=== PATIENT | male | born 1980 | race Caucasian/White ===

== ENCOUNTER 2018-08-20 08:36 | Emergency (ER) | payer BC ==
[~2018-08-20] VITALS: Ht 188 cm; Wt 99.8 kg
--- NOTE | 2018-08-20 09:53 | REP ---
Chest two views HISTORY: Cough Comparison: None The lungs are clear. The heart is normal in size. The pulmonary vasculature is normal in appearance. The bony structure is intact. IMPRESSION: No acute disease. Electronically Signed by Sean Cornejo MD 08/20/2018 09:44 A
[2018-08-20] MEDS ORDERED: AZIT-12 PO (10:23)
[2018-08-20] MEDS ORDERED: VENTAER INH (10:24)
[2018-08-20] MEDS ORDERED: ACETAMINOPHEN TAB 650MG DOSE (2X325MG) PO ONE (10:45)
[2018-08-20 10:47] VITALS: BP 137/82
== END 2018-08-20 10:48 | disposition home or self-care (01) ==
LOC: M ED 08:36
DX: J20.9 Acute bronchitis, unspecified (principal)

== ENCOUNTER 2019-11-09 03:46 | Emergency (ER) | payer BC ==
[~2019-11-09 03:46] MED LIST: AZIT-12 PO; VENTAER INH
--- NOTE | 2019-12-17 16:41 | ECGEPIP ---
SINUS RHYTHM NORMAL ECG SEE SCANNED DOWNTIME REPORT MTDD
[2020-01-25 03:31] LABS: CHOLESTEROL RISK RATIO 4.27 (<5)
== END 2019-11-09 06:30 | disposition home or self-care (01) ==
LOC: M ED 03:46
DX: K29.70 Gastritis, unspecified, without bleeding (principal)

== ENCOUNTER → 2019-11-20 | Outpatient (CLI) | payer SELFPAY | LOC: M LABSMTC 13:00 | PROVIDERS: ATTEND Pediatrics | DX: Z11.59 Encounter for screening for other viral diseases (principal); Z20.828 Contact with and (suspected) exposure to other viral communicable diseases ==

== ENCOUNTER → 2020-04-01 | Outpatient (CLI) | payer BC | LOC: M LABSMTC 12:24 | PROVIDERS: ATTEND Anesthesiology Pain Medicine | DX: Z20.828 Contact with and (suspected) exposure to other viral communicable diseases (principal) ==

== ENCOUNTER → 2020-04-16 | Outpatient (CLI) | payer BC ==
--- NOTE | 2020-04-19 23:38 | ECWPNPC ---
PATIENT NAME: ALBARO DO : 1980 GENDER: MALE VISIT DATE: 04/16/2020 DISCHARGE DATE: 04/16/20 1349 VISIT LOCKED DATE TIME: PHYSICIAN: HARPAL MUNIZ RESOURCE: HARPAL MUNIZ REASON FOR APPOINTMENT 1. THORACIC/LUMBAR SPINE HISTORY OF PRESENT ILLNESS DEPRESSION SCREENING: PHQ-2 (2015 EDITION) LITTLE INTEREST OR PLEASURE IN DOING THINGS?NOT AT ALL FEELING DOWN, DEPRESSED, OR HOPELESS?NOT AT ALL TOTAL SCORE0 39-YEAR-OLD MALE IN FOR INITIAL PAIN CONSULT REGARDING THORACIC AND LOW BACK PAIN. HE RATES HIS PAIN CURRENTLY AT A 2 OUT OF 10 AND DESCRIBES IT BURNING, STABBING, AND SHOOTING. PATIENT ADMITS TO RECENT EPIDURAL STEROID INJECTIONS THAT HELPED TO REDUCE HIS PAIN. HE DENIES MEDICATIONS AND STATES HE WOULD PREFER TO USE PROCEDURES TO HELP MANAGE HIS SYMPTOMS. GENERAL: - - -. FALL RISK SCREENING: SCREENING :NO FALLS REPORTED IN THE LAST YEAR PAIN SCREENING: PATIENT HAS A COMPLAINT OF ACUTE OR CHRONIC PAIN :YES LOCATION OF PAIN:LOW BACK, LEFT HIP, LEG(S), THIGH(S) LEFT INTENSITY OF PAIN (SCALE OF 1 TO 10):2 WHAT DOES YOUR PAIN FEEL LIKE:BURNING, STABBING, SHOOTING DURATION:INTERMITTENT PAIN IS INCREASED BY:ACTIVITIES, OTHERS CONTINUOUS LIFTING, BENDING, TWISTING PAIN IS DECREASED BY:OTHERS PAIN INJECTIONS, HEAT NURSING NOTE: - - -. PAIN CENTER INTAKE QUESTIONS: DO YOU HAVE A HISTORY OF MRSA? :NO DO YOU TAKE A BLOOD THINNERS? :NO DO YOU HAVE ANY BLEEDING DISORDERS? :NO ANY NEW NUMBNESS OR WEAKNESS IN YOUR LEGS OR ARMS? :NO ANY PACEMAKER,DEFIBRILLATOR, OR DORSAL COLUMN STIMULATOR? :NO DO YOU HAVE ANY RASHES OR OPEN SORES? :NO ARE YOU ALLERGIC TO IV DYE? :NO ARE YOU DIABETIC? :NO ANY NEW PROBLEMS WITH YOUR MEDICATIONS? :NO HAVE YOU RECEIVED A VACCINE IN THE PAST 30 DAYS? :YES IF SO WHAT VACCINE AND WHEN? COVID VACCINE 04/08/2020 DO YOU PLAN TO RECEIVE A VACCINE IN THE NEXT 21 DAYS? :YES IF SO WHAT VACCINE AND WHEN? 2ND COVID VACCINE 05/06/20 DO YOU NEED ANY PRESCRIPTION? :NO DO YOU TAKE ANY IMMUNOSUPPRESSIVE MEDICATIONS? :NO CURRENT MEDICATIONS TAKING MULTI COMPLETE - CAPSULE DIRECTED ORALLY DAILY MEDICATION LIST REVIEWED AND RECONCILED WITH THE PATIENT PAST MEDICAL HISTORY CHRONIC BACK PAIN ALLERGIES N.K.D.A. SURGICAL HISTORY RIGHT ANKLE 2007 APPENDECTOMY 2014 NASAL SEPTOPLASTY 2017 FAMILY HISTORY FATHER: ALIVE MOTHER: ALIVE, DIAGNOSED WITH HYPERTENSION 1 BROTHER(S) , 4 SISTER(S) . 1 SON(S) . FAMILY OF HYPERTENSIONSISTER - DISSECTED ARTERYSON - APPENDECTOMY. SOCIAL HISTORY GENERAL: TOBACCO USE ARE YOU A:CURRENT SOME DAY SMOKER OCCASSIONAL - 1/WEEK LATEX QUESTIONNAIRE LATEX ALLERGY : HAVE YOU EVER DEVELOPED ANY TYPE OF REACTION AFTER HANDLING LATEX PRODUCTS SUCH RUBBER GLOVES, CONDOMS, DIAPHRAGMS, BALLOONS, SOCKS, OR UNDERWEAR?NO LATEX ALLERGY : HAVE YOU EVER DEVELOPED ANY TYPE OF REACTION DURING OR AFTER DENTAL APPOINTMENT, VAGINAL/RECTAL EXAMINATION, SURGICAL PROCEDURE, OR ANY OTHER EXPOSURE?NO LATEX RISK : HAVE YOU EVER HAD ANY DIFFICULTY BREATHING OR HIVES AFTER EATING OR HANDLING ANY FRUITS, OR VEGETABLES; SUCH KIWI, BANANAS, STONE FRUITS, OR CHESTNUTSNO LATEX RISK : DO YOU HAVE A PREVIOUS PERSONAL HISTORY OF MORE THAN NINE SURGERIES, SPINA BIFIDA, OR REPEATED CATHERIZATIONS? NO LATEX RISK : ARE YOU FREQUENTLY EXPOSED TO LATEX PRODUCTS IN YOUR OCCUPATION?NO DATE ASKED : 04/15/2020 ALCOHOL SCREENING DID YOU HAVE A DRINK CONTAINING ALCOHOL IN THE PAST YEAR?YES HOW OFTEN DID YOU HAVE A DRINK CONTAINING ALCOHOL IN THE PAST YEAR?TWO TO FOUR TIMES A MONTH (2 POINTS) HOW MANY DRINKS DID YOU HAVE ON A TYPICAL DAY WHEN YOU WERE DRINKING IN THE PAST YEAR?5 OR 6 (2 POINTS) HOW OFTEN DID YOU HAVE SIX OR MORE DRINKS ON ONE OCCASION IN THE PAST YEAR?LESS THAN MONTHLY (1 POINT) POINTS5 INTERPRETATIONPOSITIVE RECREATIONAL DRUG USE DRUG USE?NO LEARNING BARRIERS / SPECIAL NEEDS BARRIERS TO LEARNING?NO HEARING IMPAIRED?NO VISION IMPAIRED?NO COGNITIVELY IMPAIRED?NO READINESS TO LEARN?YES LEARNING PREFERENCES?YES :BOOKLETS, HANDOUTS LEARNING CAPABILITIES PRESENT?YES EMOTIONAL BARRIERS?NO SPECIAL DEVICES?NO SAVE ALL OPERATOR NEEDED?NO HOSPITALIZATION/MAJOR DIAGNOSTIC PROCEDURE SURGERY REVIEW OF SYSTEMS CONSTITUTIONAL: ANY RECENT FEVER NO . CHILLS NO . WEIGHT CHANGE OF UNKNOWN REASONS NO . MUSCULOSKELETAL: ANY UNUSUAL JOINT PAIN OR SWELLING NOT MENTIONED NO . SYSTEMIC LUPUS NO . ANY NEUROMUSCULAR DISORDER NOT MENTIONED NO . LYME DISEASE NO . GASTROENTEROLOGY: ANY NEW CHANGE IN BOWEL CONTROL? NO . HISTORY OF LIVER DISORDER NOT MENTIONED NO . HISTORY OF UNUSUAL ABDOMINAL PAIN OR CRAMPING NOT MENTIONED NO . NO CONSTIPATION. GENITOURINARY: ANY NEW CHANGE IN BLADDER CONTROL? NO . ANY RENAL/KIDNEY CONDITON NOT MENTIONED NO . NEUROLOGY: HISTORY OF TBI NOT MENTIONED NO . OTHER NEW NUMBNESS OR PAIN PATTERNS NOT MENTIONED NO . NEW ONSET DIZZINESS OR NEUROLOGICAL CHANGES NOT MENTIONED NO . HISTORY OF SEVERE HEADACHES NOT MENTIONED NO . HISTORY OF STROKE OR NEUROLOGICAL DISORDER NOT MENTIONED NO . CARDIOLOGY: HEART SURGERY NO . CONGESTIVE HEART FAILURE/FLUID OVERLOAD NOT MENTIONED NO . HISTORY OF CHEST PAIN,IRREGULAR HEART BEAT NOT MENTIONED NO . RESPIRATORY: SHORTNESS OF BREATH ON EXERTION, WHEEZES, UNUSUAL COUGH NOT MENTIONED NO . ENDOCRINOLOGY: ADRENAL GLAND OR THYROID DISORDERS NOT MENTIONED NO . UNUSUAL URINATION, DIZZINESS OR LETHARGY NOT MENTIONED NO . VITAL SIGNS WT 230 LBS, HT 6'2, BMI 31.19 INDEX, BP 151/82 MM HG, HR 18 /MIN, TEMP 98 F, OXYGEN SAT % 99%, SAFE IN ENV? (Y/N) YEST.SHEILA [place]LE NOTIFY PROVIDER ABOUT PATIENT VITALS SIGNS " HAD ENERGY DRINK ". EXAMINATION GENERAL EXAMINATION: GENERALNO ACUTE DISTRESS, WELL NOURISHED AND HYDRATED. PSYCHAPPROPRIATE MOOD AND AFFECT . LUNGS:CLEAR TO AUSCULTATION BILATERALLY, NO WHEEZES, RHONCHI, RALES. HEART:NO MURMURS, REGULAR RATE AND RHYTHM. BACK:DENIES POINT TENDERNESS ALONG LUMBAR AND THORACIC SPINE, SURROUNDING SKIN SHOWS NO ERYTHEMA, ECCHYMOSIS, INCREASED WARMTH, AND/OR SKIN ERUPTIONS NOTED. . MUSCULOSKELETAL:EQUAL STRENGTH OF THE LOWER EXTREMITIES BILATERALLY . ASSESSMENTS INTERVERTEBRAL DISC DISORDERS WITH RADICULOPATHY, LUMBOSACRAL REGION - M51.17 (PRIMARY) TREATMENT OTHERS NOTES: 39-YEAR-OLD MALE IN FOR INITIAL PAIN CONSULT. GIVEN PRESENTING SYMPTOMS AND RESULTS OF PHYSICAL EXAMINATION RECOMMENDED PATIENT COME BACK ON AN -NEEDED BASIS. PATIENT HAS EXPRESSED UNDERSTANDING OF AND WAS IN AGREEMENT WITH TREATMENT PLAN. GIVEN TIME TO ASK QUESTIONS AND EXPRESS CONCERNS. PROCEDURE CODES FA211 ESTABILISHED PATIENT [facility] CHARGE DISPOSITION & COMMUNICATION FOLLOW UP NEEDED (REASON: THORACIC AND LUMBAR BACK PAIN) ELECTRONICALLY SIGNED BY TANIA COLES ON 04/19/2020 AT 10:35 AM EST DISCLAIMER : THIS IS A VISIT SUMMARY EXTRACTED FROM THE [employer] CHART. IT IS NOT A COPY OF THE [employer] PROGRESS NOTE. MELQUIADES
== END ==
LOC: M PAIN 13:00
PROVIDERS: ATTEND Family Medicine
DX: M51.17 Intervertebral disc disorders with radiculopathy, lumbosacral region (principal); F17.210 Nicotine dependence, cigarettes, uncomplicated; Z79.899 Other long term (current) drug therapy

== ENCOUNTER → 2020-06-02 | Outpatient (CLI) | payer BC ==
--- NOTE | 2020-06-02 17:40 | REP ---
INDICATION: LUMBAR HERNIATED DISC. COMPARISON: None. TECHNIQUE: Multiple sequences obtained in the axial, coronal and sagittal planes. FINDINGS: The osseous structures of the pelvis demonstrate normal bone marrow signal. There is no bone marrow edema or occult fracture. There is no evidence of avascular necrosis of the femoral heads. No bone lesion is seen. There is a lobulated cyst with thin internal septations in the left pectineus muscle. This measures approximately 2.6 x 1.0 x 3.5 cm. Otherwise the pelvic musculature appears unremarkable with no abnormal signal. No definite arthritic changes seen at either hip joint. There is normal amount of joint fluid. No adenopathy is seen in the pelvis. There are small bilateral inguinal hernias containing noninflamed fat. IMPRESSION: Probable ganglion cyst in the left pectineus muscle. Small bilateral hernias containing fat. No osseous abnormality seen. <Electronically signed by Jose Veras > 06/02/20 0445
--- NOTE | 2020-06-02 18:00 | REPVR ---
PROCEDURE INFORMATION: Exam: MR Lumbar Spine Without Contrast Exam date and time: 06/02/2020 5:34 PM Age: 39 years old Clinical indication: Low back pain; Additional info: Lumbar herniated disc TECHNIQUE: Imaging protocol: Multiplanar magnetic resonance images of the lumbar spine without intravenous contrast. COMPARISON: No relevant prior studies available. FINDINGS: Vertebrae: Mild increased concavity of the superior T12 and L1 endplates, with a focal Schmorl's node of the superior L1 endplate. There is no acute marrow edema, consistent with chronic changes. Modic endplate changes are identified adjacent to these superior endplates. There is a small concavity/Schmorl's node involving the inferior L5 endplate. The remaining lumbar vertebral bodies are normal in height. Mild retrolisthesis of L5 on S1. Spinal cord: The distal end of the conus medullaris ends at L1, normal in position. L1-L2: Bilateral facet arthropathy. No significant spinal canal stenosis or neural foraminal narrowing. L2-L3: Bilateral facet arthropathy with hypertrophy of the ligamentum flavum. There is no significant narrowing of the thecal sac or neural foramina. L3-L4: Bilateral facet arthropathy with hypertrophy of the ligamentum flavum. No significant spinal canal stenosis. There is slight narrowing of the inferior aspects of the left neural foramen. Minimal bulging into the right neural foramen, without significant narrowing. L4-L5: Bilateral facet arthropathy with hypertrophy of the ligamentum flavum. A broad-based disc bulge is identified, with mild narrowing of the thecal sac. There is narrowing of both lateral recesses. Mild bilateral neural foraminal narrowing. L5-S1: Bilateral facet arthropathy with hypertrophy of the ligamentum flavum. A central protrusion is identified causing effacement of the anterior epidural fat, without significant narrowing of the thecal sac. No significant neural foraminal narrowing bilaterally. Soft tissues: No significant paraspinal swelling. Lymph nodes: Scattered nonspecific small retroperitoneal lymph nodes are visualized. IMPRESSION: 1. Mild retrolisthesis of L5 on S1. 2. Degenerative changes are identified at multiple lumbar levels, as described above. 3. Mild narrowing of the thecal sac at L4-L5. 4. At L5-S1, a central protrusion is identified causing effacement of the anterior epidural fat. 5. Neural foraminal narrowing visualized at L3-L4 and L4-L5. 6. Additional findings described above. Electronically signed by: Adair Rothman On 06/02/2020 18:01:12 PM
== END ==
LOC: M RAD 16:25
PROVIDERS: ATTEND Physical Medicine & Rehabilitation
DX: M51.26 Other intervertebral disc displacement, lumbar region (principal); K40.20 Bilateral inguinal hernia, without obstruction or gangrene, not specified as recurrent

== ENCOUNTER → 2022-07-31 | Outpatient (CLI) | payer BC | LOC: M SOG 07:59 | PROVIDERS: ATTEND Orthopaedic Surgery | DX: M54.50 Low back pain, unspecified (principal) ==

== ENCOUNTER → 2022-10-09 | Outpatient (CLI) | payer BC | LOC: M RAD 14:37 | PROVIDERS: ATTEND Orthopaedic Surgery | DX: M25.552 Pain in left hip (principal); M54.59 Other low back pain ==

== ENCOUNTER → 2022-11-13 | Outpatient (CLI) | payer BC ==
[~2022-11-13] MED LIST changes: +PROHANCE 279.3MG/ML 15ML VIAL ONE; +PROHANCE 279.3MG/ML 5ML VIAL ONE
== END ==
LOC: M PLAIMG 13:25
PROVIDERS: ATTEND Orthopaedic Surgery
DX: M47.816 Spondylosis without myelopathy or radiculopathy, lumbar region (principal); R93.41 Abnormal radiologic findings on diagnostic imaging of renal pelvis, ureter, or bladder
CPT/HCPCS: 72197; A9576

== ENCOUNTER → 2023-03-16 | Outpatient (CLI) | payer BC ==
[~2023-03-16] MED LIST changes: -PROHANCE 279.3MG/ML 15ML VIAL ONE; -PROHANCE 279.3MG/ML 5ML VIAL ONE
[2023-03-16 17:58] LABS: BASO % 0.8 % (0.0-1.0); EOS # 0.1 10^3/uL (0.0-0.5); EOS % 1.5 % (0.0-3.0); HEMATOCRIT 45.9 % (42.0-52.0); LYMPH # 1.6 10^3/uL (1.5-5.0); LYMPH % 31.3 % (24.0-44.0); MEAN CORPUSCULAR HEMOGLOBIN 30.7 pg (27.0-33.0); MEAN CORPUSCULAR HGB CONC 32.7 g/dl (32.0-36.5); MEAN CORPUSCULAR VOLUME 93.9 fl (80.0-96.0); MONO # 0.5 10^3/uL (0.0-0.8); MONO % 9.7 % (2.0-8.0); NEUTROPHILS # 2.9 10^3/uL (1.5-8.5); NEUTROPHILS % 56.1 % (36.0-66.0); PLATELET COUNT, AUTOMATED 131 10^3/uL (150-450); RED BLOOD COUNT 4.89 10^6/uL (4.30-6.10); WHITE BLOOD COUNT 5.2 10^3/uL (4.0-10.0)
[2023-03-16 18:18] LABS: BLOOD UREA NITROGEN 12 MG/DL (9-23); CALCIUM LEVEL 9.1 MG/DL (8.5-10.1); CARBON DIOXIDE LEVEL 27 MMOL/L (20-31); CHLORIDE LEVEL 110 MMOL/L (98-107); CREATININE FOR GFR 0.93 MG/DL (0.70-1.30); GLOMERULAR FILTRATION RATE > 60.0 (>60); GLUCOSE, FASTING 86 MG/DL (60-100); POTASSIUM SERUM 4.6 MMOL/L (3.5-5.1); SODIUM LEVEL 144 MMOL/L (136-145)
== END ==
LOC: M LAB 16:18
PROVIDERS: ATTEND Orthopaedic Surgery
DX: M24.152 Other articular cartilage disorders, left hip (principal); M25.552 Pain in left hip; M53.3 Sacrococcygeal disorders, not elsewhere classified